=== PATIENT | female | born 1970 | race Caucasian/White ===

== ENCOUNTER → 2017-04-13 | Outpatient (CLI) | payer OTHER ==
[~2017-04-13] MED LIST: ALBUTEROL2.5 MG/0.5 INH; CIPROFLOXACIN500 MG PO; LORTAB 10/500 51 TA1 PO; NKHM; PREDNICOT10 MG PO; PRILOSEC20 MG PO; ZITHROMAX Z PA250 MG PO; ZOFRAN ODT8 MG PO
== END | disposition home or self-care (01) ==
LOC: RAD 09:55
DX: J44.9 Chronic obstructive pulmonary disease, unspecified (principal); R06.02 Shortness of breath; F17.200 Nicotine dependence, unspecified, uncomplicated; J06.9 Acute upper respiratory infection, unspecified; R09.89 Other specified symptoms and signs involving the circulatory and respiratory systems; Z90.710 Acquired absence of both cervix and uterus

== ENCOUNTER → 2017-06-09 | Outpatient (CLI) | payer OTHER ==
[2017-06-10 08:09] LABS: ALPHA-1-ANTITRYPSIN, SERUM 129 mg/dL (90-200)
[2017-06-12 17:08] LABS: PHENOTYPE MS (.)
== END | disposition home or self-care (01) ==
LOC: LAB 13:47
PROVIDERS: Internal Medicine Critical Care Medicine
DX: J44.9 Chronic obstructive pulmonary disease, unspecified (principal)

== ENCOUNTER → 2019-12-20 | Outpatient (CLI) | payer OTHER | END | disposition home or self-care (01) | LOC: COVID19 11:41 | DX: R06.02 Shortness of breath (principal); R05 Cough; Z20.828 Contact with and (suspected) exposure to other viral communicable diseases ==

== ENCOUNTER → 2020-02-13 | Outpatient (CLI) | payer BC ==
[~2020-02-13] MED LIST changes: +CHANTIX1 M1 PO; +MULTIPLE VITAM1 EACH PO; +TRELEGY ELLIPT1 EACH INH; +VITAMIN C500 M4 PO; +WELLBUTRIN SR100 MG PO; +ZINC50 M4 PO
== END | disposition home or self-care (01) ==
LOC: COVID19 00:08
DX: J84.9 Interstitial pulmonary disease, unspecified (principal); Z20.828 Contact with and (suspected) exposure to other viral communicable diseases

== ENCOUNTER → 2020-02-19 | Day surgery (SDC) | payer BC ==
[~2020-02-19] VITALS: Ht 165.1 cm; Wt 90.7 kg
[2020-02-19 07:45] VITALS: BP 131/36
[2020-02-19 09:07] VITALS: BP 121/80
[2020-02-19 09:22] VITALS: BP 110/51
[2020-02-19 09:37] VITALS: BP 114/54
[2020-02-20 13:08] LABS: ACID FAST SPEC PROCESSING Concentration (.)
== END | disposition home or self-care (01) ==
LOC: SDC 02-14 10:15
PROVIDERS: Internal Medicine Critical Care Medicine
DX: J43.2 Centrilobular emphysema (principal); J84.9 Interstitial pulmonary disease, unspecified; K21.9 Gastro-esophageal reflux disease without esophagitis; E66.01 Morbid (severe) obesity due to excess calories; Z68.33 Body mass index [BMI] 33.0-33.9, adult; Z98.890 Other specified postprocedural states; Z79.899 Other long term (current) drug therapy; Z87.891 Personal history of nicotine dependence

== ENCOUNTER → 2021-08-10 | Outpatient (CLI) | payer OTHER | LOC: COVID19 15:35 | PROVIDERS: ATTEND Internal Medicine | DX: U07.1 COVID-19 (principal) ==

== ENCOUNTER → 2022-07-28 | Outpatient (CLI) | payer BC | END | disposition home or self-care (01) | LOC: LAB 09:05 | PROVIDERS: ATTEND Internal Medicine | DX: E34.9 Endocrine disorder, unspecified (principal) ==

== ENCOUNTER → 2022-08-29 | Outpatient (CLI) | payer BC ==
[2022-08-30 07:43] VITALS: BP 164/79
== END | disposition home or self-care (01) ==
LOC: LAB 00:01
PROVIDERS: ATTEND Internal Medicine
DX: E27.49 Other adrenocortical insufficiency (principal)

== ENCOUNTER → 2022-09-01 | Outpatient (CLI) | payer BC ==
[2022-09-01 07:29] VITALS: BP 164/79
[2022-09-05 16:07] LABS: CORTISOL #2 17.5 ug/dL (Not Estab.); CORTISOL #3 21.2 ug/dL (Not Estab.); CORTISOL BASELINE 7.4 ug/dL (.)
== END | disposition home or self-care (01) ==
LOC: LAB 07:26
PROVIDERS: ATTEND Internal Medicine
DX: E27.49 Other adrenocortical insufficiency (principal); J44.9 Chronic obstructive pulmonary disease, unspecified; K21.9 Gastro-esophageal reflux disease without esophagitis; Z87.891 Personal history of nicotine dependence